=== PATIENT | female | born 1945 | race African-American/Black ===

== ENCOUNTER 2017-11-23 17:59 | Inpatient (IN) | payer MEDICARE, OTHER ==
[~2017-11-23] VITALS: Ht 162.6 cm; Wt 72.2 kg
[2017-11-23] MEDS ORDERED: SODIUM CHLORIDE 0.9% 1,000 ML IV ONE ×2 (18:55)
[2017-11-23] MEDS ORDERED: ONDANSETRON HCL 4 MG/2 ML VIAL IV ONE (19:00)
[2017-11-23] MEDS ORDERED: MORPHINE SULFATE 4 MG/ML SYR/VIAL IV ONE (19:00)
[2017-11-23] MEDS ORDERED: cefTRIAXone 1GM/10ml IVPUSH 10 ML IV ONE (20:00)
[2017-11-23] MEDS ORDERED: ACETAMINOPHEN 325 MG TAB PO ONE (22:00)
[2017-11-23 22:02] LABS: Basophils # (auto) 0.1 uL; Basophils % (auto) 0.6 % (0.0-2.0); Eosinophils # (auto) 0.1 uL; Eosinophils % (auto) 0.7 % (0.0-7.0); Hematocrit 29.3 % (36.0-46.0); Hemoglobin 9.3 g/dL (12.2-16.2); Lymphocytes # (auto) 1.5 uL; Lymphocytes % (auto) 6.7 % (10.0-50.0); Mean Corpuscular Hemoglobin 29.1 pg (28.0-32.0); Mean Corpuscular Hgb Conc. 31.7 g/dL (32.0-36.0); Mean Corpuscular Volume 91.7 fL (80.0-100.0); Monocytes % (auto) 9.2 % (0.0-12.0); Neutrophils # (auto) 18.2 uL; Neutrophils % (auto) 82.8 % (37.0-80.0); Nucleated Red Blood Cells % 0.1 %; Platelet Count (auto) 302 10^3/uL (140-450); Red Cell Distribution Width 19.5 % (11.8-14.3); White Blood Cell 21.9 10^3/uL (4.4-10.8)
[2017-11-23 22:25] LABS: Amylase 12 U/L (25-115); Lipase 39 U/L (73-393)
[2017-11-23 22:29] LABS: Alanine Aminotransferase 17 U/L (13-56); Alkaline Phosphatase 204 U/L (45-117); Anion Gap 11 (5-15); Aspartate Aminotransferase 70 U/L (15-37); BUN/Creatinine Ratio 29.4; Bilirubin, Total 0.5 mg/dL (0.2-1.0); Blood Urea Nitrogen 10 mg/dL (7-18); Calcium 8.5 mg/dL (8.5-10.1); Carbon Dioxide 27 mmol/L (21-32); Chloride 98 mmol/L (98-107); GFR African American 242 mL/min; GFR Non-African American 200 mL/min; Glucose 91 mg/dL (74-106); Magnesium 2.5 mg/dL (1.6-2.6); Potassium 4.1 mmol/L (3.5-5.1); Sodium 136 mmol/L (136-145); Total Protein 7.4 g/dL (6.4-8.2)
[2017-11-24] MEDS ORDERED: VANCOMYCIN PER PHARMACY 0 MG IV SCH (00:15)
[2017-11-24] MEDS ORDERED: ACETAMINOPHEN 500 MG TAB PO PRN (00:15)
[2017-11-24] MEDS: SODIUM CHLORIDE 0.9% 1,000 ML IV SCH ×2 (00:39→14:46)
[2017-11-24] MEDS ORDERED: VANCOMYCIN 1GM/250ML 250 ML IV ONE (01:00)
[2017-11-24 02:45] VITALS: BP 158/65
[2017-11-24 02:57] LABS: Urine Bacteria NONE SEEN /hpf (None Seen); Urine Blood Negative /uL (Negative); Urine Mucus MANY (None Seen); Urine Specific Gravity 1.028 (1.001-1.035); Urine WBC 7 /hpf (0 - 5)
[2017-11-24 05:00] VITALS: BP 137/79
[2017-11-24 08:55] VITALS: BP 152/78
[2017-11-24 11:54] VITALS: BP 135/71
[2017-11-24] MEDS: HYDROcodone-ACET 5/325MG TAB PO PRN ×2 (12:33→19:43)
[2017-11-24] MEDS: ONDANSETRON HCL 4 MG/2 ML VIAL IV PRN ×4 (12:47→18:01)
[2017-11-24 12:56] LABS: Hemoglobin 8.9 g/dL (12.2-16.2)
[2017-11-24 12:57] LABS: Hematocrit 28.6 % (36.0-46.0); Mean Corpuscular Hemoglobin 28.5 pg (28.0-32.0); Mean Corpuscular Hgb Conc. 31.1 g/dL (32.0-36.0); Mean Corpuscular Volume 91.5 fL (80.0-100.0); Platelet Count (auto) 278 10^3/uL (140-450); Red Blood Cells 3.12 10^6/uL (4.0-5.20); Red Cell Distribution Width 19.5 % (11.8-14.3); White Blood Cell 23.8 10^3/uL (4.4-10.8)
[2017-11-24 13:10] LABS: Basophils % (manual) 0 (0.0-2.0); Blast Cells 0; Eosinophils % (manual) 0 (0-7); Metamyelocytes % 0; Myelocytes % 0; Promyelocytes % 0; Reactive Lymphocytes 0
[2017-11-24 13:22] LABS: Calcium 8.2 mg/dL (8.5-10.1); Potassium 3.8 mmol/L (3.5-5.1)
[2017-11-24] MEDS: LEVOFLOXACIN 500MG 100 ML IV SCH (13:43)
[2017-11-24 14:02] LABS: Band Neutrophils % (manual) 1; Lymphocytes % (manual) 4 (10.0-50.0); Monocytes % (manual) 4 (0-12)
[2017-11-24 16:25] VITALS: BP 136/84
[2017-11-24] MEDS ORDERED: PRO10T PO (17:03)
[2017-11-24] MEDS ORDERED: LORA1TAB12 PO (17:03)
[2017-11-24] MEDS ORDERED: HYDR-4683 PO (17:03)
[2017-11-24] MEDS ORDERED: AMLO5TAB2 PO (17:03)
[2017-11-24 23:23] VITALS: BP 149/85
[2017-11-25] MEDS ORDERED: VANCOMYCIN 750 MG in D5W 5% 250 ML IV SCH (01:00)
[2017-11-25] MEDS: SODIUM CHLORIDE 0.9% 1,000 ML IV SCH ×2 (02:55→17:13)
[2017-11-25 05:47] VITALS: BP 140/80
[2017-11-25] MEDS: ONDANSETRON HCL 4 MG/2 ML VIAL IV PRN ×2 (07:52→19:20)
[2017-11-25 08:11] VITALS: BP 153/91
[2017-11-25] MEDS: LEVOFLOXACIN 500MG 100 ML IV SCH (09:42)
[2017-11-25] MEDS ORDERED: IOHEXOL 300 MG/ML 100ML BOTTLE IJ ONE (10:16)
[2017-11-25 10:51] LABS: Hematocrit 24.6 % (36.0-46.0); Hemoglobin 7.9 g/dL (12.2-16.2); Mean Corpuscular Hemoglobin 29.1 pg (28.0-32.0); Platelet Count (auto) 169 10^3/uL (140-450); Red Cell Distribution Width 19.6 % (11.8-14.3); White Blood Cell 22.2 10^3/uL (4.4-10.8)
[2017-11-25 10:53] LABS: Band Neutrophils % (manual) 0; Basophils % (manual) 0 (0.0-2.0); Blast Cells 0; Eosinophils % (manual) 0 (0-7); Metamyelocytes % 0; Myelocytes % 0; Promyelocytes % 0; Reactive Lymphocytes 0
[2017-11-25] MEDS: HYDROcodone-ACET 5/325MG TAB PO PRN (11:40)
[2017-11-25 11:42] LABS: Lymphocytes % (manual) 6 (10.0-50.0); Monocytes % (manual) 3 (0-12)
[2017-11-25] MEDS: HYDROmorphone HCL 2 MG/ML VL IV PRN ×2 (12:00→18:25)
[2017-11-25 12:12] VITALS: BP 160/99
[2017-11-25 16:55] VITALS: BP 144/78
[2017-11-25 22:00] VITALS: BP 159/97
[2017-11-26] MEDS: VANCOMYCIN 1GM/250ML 250 ML IV SCH (01:05)
[2017-11-26] MEDS: HYDROmorphone HCL 2 MG/ML VL IV PRN ×5 (01:36→20:49)
[2017-11-26 05:25] VITALS: BP 146/77
[2017-11-26] MEDS: SODIUM CHLORIDE 0.9% 1,000 ML IV SCH ×2 (06:32→20:56)
[2017-11-26 09:00] VITALS: BP 158/96
[2017-11-26] MEDS: LACTULOSE 20Gm/30ML SOLN PO PRN (09:34)
[2017-11-26] MEDS: LEVOFLOXACIN 500MG 100 ML IV SCH (09:34)
[2017-11-26] MEDS: BOOST 8 ounces PO SCH ×3 (09:34→18:00)
[2017-11-26 13:00] VITALS: BP 154/86
[2017-11-26] MEDS: ONDANSETRON HCL 4 MG/2 ML VIAL IV PRN (13:57)
[2017-11-26 16:40] VITALS: BP 158/95
[2017-11-26 22:00] VITALS: BP 136/80
[2017-11-27] MEDS: VANCOMYCIN 1GM/250ML 250 ML IV SCH ×2 (01:00→09:50)
[2017-11-27] MEDS: HYDROmorphone HCL 2 MG/ML VL IV PRN ×3 (04:41→18:39)
[2017-11-27 05:27] VITALS: BP 152/82
[2017-11-27] MEDS: ONDANSETRON HCL 4 MG/2 ML VIAL IV PRN ×3 (06:40→17:59)
[2017-11-27] MEDS: BOOST 8 ounces PO SCH ×3 (08:00→17:32)
[2017-11-27] MEDS: SODIUM CHLORIDE 0.9% 1,000 ML IV SCH ×2 (08:15→21:49)
[2017-11-27 09:00] VITALS: BP 167/98
[2017-11-27] MEDS: LEVOFLOXACIN 500MG 100 ML IV SCH (09:49)
[2017-11-27] MEDS: PRO-STAT 64 30ML PO SCH (09:50)
[2017-11-27 13:00] VITALS: BP 152/74
[2017-11-27 17:00] VITALS: BP 138/60
[2017-11-27] MEDS: LACTULOSE 20Gm/30ML SOLN PO PRN (21:49)
[2017-11-27] MEDS ORDERED: hydrALAZINE HCL 20 MG/ML VL ONE (21:58)
[2017-11-27 22:00] VITALS: BP 126/64
[2017-11-27] MEDS: hydrALAZINE HCL 20 MG/ML VL IV PRN (22:00)
[2017-11-28] MEDS: HYDROmorphone HCL 2 MG/ML VL IV PRN ×7 (01:02→23:08)
[2017-11-28] MEDS: hydrALAZINE HCL 20 MG/ML VL IV PRN (04:30)
[2017-11-28 05:00] VITALS: BP 169/110
[2017-11-28 06:05] LABS: Albumin 1.7 g/dL (3.4-5.0); Calcium 8.3 mg/dL (8.5-10.1); Total Protein 6.8 g/dL (6.4-8.2)
[2017-11-28 06:06] LABS: Potassium 2.9 mmol/L (3.5-5.1)
[2017-11-28] MEDS ORDERED: POTASSIUM CHL 20 Meq TABLET PO ONE (06:15)
[2017-11-28] MEDS: ONDANSETRON HCL 4 MG/2 ML VIAL IV PRN ×2 (06:38→16:37)
[2017-11-28 08:00] VITALS: BP 154/87
[2017-11-28] MEDS: HYDROcodone-ACET 5/325MG TAB PO PRN ×2 (08:33→12:10)
[2017-11-28] MEDS: BOOST 8 ounces PO SCH ×3 (08:33→17:27)
[2017-11-28] MEDS: LEVOFLOXACIN 500MG 100 ML IV SCH (09:08)
[2017-11-28] MEDS: VANCOMYCIN 1GM/250ML 250 ML IV SCH (12:07)
[2017-11-28] MEDS: PRO-STAT 64 30ML PO SCH (12:07)
[2017-11-28] MEDS: SODIUM CHLORIDE 0.9% 1,000 ML IV SCH (12:07)
[2017-11-28 13:00] VITALS: BP 148/91
[2017-11-28 16:58] VITALS: BP 154/99
[2017-11-28 21:56] VITALS: BP 153/90
[2017-11-28] MEDS ORDERED: hydrALAZINE HCL 20 MG/ML VL IV SCH ×2 (22:00→22:01)
[2017-11-28] MEDS ORDERED: TEMAZEPAM 15 MG CAP PO ONE (22:45)
[2017-11-29] MEDS: SODIUM CHLORIDE 0.9% 1,000 ML IV SCH ×2 (00:15→14:54)
[2017-11-29] MEDS: ONDANSETRON HCL 4 MG/2 ML VIAL IV PRN ×4 (04:07→23:24)
[2017-11-29] MEDS: HYDROmorphone HCL 2 MG/ML VL IV PRN ×4 (04:25→23:24)
[2017-11-29] MEDS: LACTULOSE 20Gm/30ML SOLN PO PRN ×2 (05:07→17:07)
[2017-11-29 05:52] VITALS: BP 159/102
[2017-11-29 07:15] LABS: Hematocrit 29.5 % (36.0-46.0); Hemoglobin 9.3 g/dL (12.2-16.2); Mean Corpuscular Hemoglobin 28.5 pg (28.0-32.0); Mean Corpuscular Hgb Conc. 31.5 g/dL (32.0-36.0); Mean Corpuscular Volume 90.5 fL (80.0-100.0); Platelet Count (auto) 146 10^3/uL (140-450); Red Blood Cells 3.26 10^6/uL (4.0-5.20); White Blood Cell 29.4 10^3/uL (4.4-10.8)
[2017-11-29 07:36] LABS: Albumin 1.6 g/dL (3.4-5.0); BUN/Creatinine Ratio 24.3; Calcium 8.1 mg/dL (8.5-10.1); Potassium 3.3 mmol/L (3.5-5.1); Red Cell Distribution Width 20.5 % (11.8-14.3); Total Protein 6.6 g/dL (6.4-8.2)
[2017-11-29 07:37] LABS: Basophils % (manual) 0 (0.0-2.0); Blast Cells 0; Metamyelocytes % 0; Myelocytes % 0; Promyelocytes % 0; Reactive Lymphocytes 0
[2017-11-29] MEDS: LEVOFLOXACIN 500MG 100 ML IV SCH (08:29)
[2017-11-29 09:00] VITALS: BP 179/89
[2017-11-29 09:25] LABS: Band Neutrophils % (manual) 2
[2017-11-29 09:26] LABS: Eosinophils % (manual) 1 (0-7); Lymphocytes % (manual) 5 (10.0-50.0); Monocytes % (manual) 3 (0-12)
[2017-11-29] MEDS: PRO-STAT 64 30ML PO SCH (11:25)
[2017-11-29] MEDS: BOOST 8 ounces PO SCH ×3 (11:25→19:36)
[2017-11-29] MEDS: hydrALAZINE HCL 20 MG/ML VL IV PRN (11:26)
[2017-11-29 13:00] VITALS: BP 122/113
[2017-11-29] MEDS: VANCOMYCIN 1GM/250ML 250 ML IV SCH (14:54)
[2017-11-29 18:00] VITALS: BP 150/90
[2017-11-29 22:18] VITALS: BP 145/85
[2017-11-30] MEDS: HYDROmorphone HCL 2 MG/ML VL IV PRN ×4 (02:34→23:04)
[2017-11-30 05:32] VITALS: BP 159/91
[2017-11-30 08:16] LABS: Albumin 1.6 g/dL (3.4-5.0); BUN/Creatinine Ratio 22.5; Bilirubin, Total 0.9 mg/dL (0.2-1.0); Calcium 8.2 mg/dL (8.5-10.1); Potassium 3.2 mmol/L (3.5-5.1); Total Protein 6.5 g/dL (6.4-8.2)
[2017-11-30] MEDS: VANCOMYCIN 1GM/250ML 250 ML IV SCH (08:22)
[2017-11-30] MEDS: ONDANSETRON HCL 4 MG/2 ML VIAL IV PRN ×2 (08:23→19:26)
[2017-11-30] MEDS: BOOST 8 ounces PO SCH ×3 (08:23→19:27)
[2017-11-30 09:00] VITALS: BP 167/89
[2017-11-30] MEDS ORDERED: BISACODYL 10 MG RECT SUPP PR PRN (09:45)
[2017-11-30] MEDS: PRO-STAT 64 30ML PO SCH (11:43)
[2017-11-30 13:00] VITALS: BP 159/82
[2017-11-30] MEDS: LEVOFLOXACIN 500MG 100 ML IV SCH (13:24)
[2017-11-30 17:00] VITALS: BP 148/77
[2017-11-30] MEDS: HYDROcodone-ACET 5/325MG TAB PO PRN (21:47)
[2017-11-30 21:55] VITALS: BP 168/78
[2017-11-30] MEDS: SODIUM CHLORIDE 0.9% 1,000 ML IV SCH (23:08)
[2017-12-01] MEDS: HYDROmorphone HCL 2 MG/ML VL IV PRN ×3 (04:25→18:20)
[2017-12-01 05:00] VITALS: BP 165/92
[2017-12-01 06:13] LABS: Albumin 1.6 g/dL (3.4-5.0); BUN/Creatinine Ratio 27.9; Calcium 8.1 mg/dL (8.5-10.1); Potassium 3.3 mmol/L (3.5-5.1)
[2017-12-01 06:16] LABS: Bilirubin, Total 0.8 mg/dL (0.2-1.0); Total Protein 6.1 g/dL (6.4-8.2)
[2017-12-01 09:00] VITALS: BP 170/89
[2017-12-01] MEDS: ONDANSETRON HCL 4 MG/2 ML VIAL IV PRN ×2 (09:50→14:25)
[2017-12-01] MEDS: LEVOFLOXACIN 500MG 100 ML IV SCH (09:51)
[2017-12-01] MEDS: BOOST 8 ounces PO SCH ×3 (09:56→18:20)
[2017-12-01] MEDS: PRO-STAT 64 30ML PO SCH (11:49)
[2017-12-01 12:15] LABS: Hemoglobin 9.1 g/dL (12.2-16.2)
[2017-12-01 12:17] LABS: Hematocrit 29.3 % (36.0-46.0); Mean Corpuscular Hgb Conc. 31.1 g/dL (32.0-36.0); Platelet Count (auto) 134 10^3/uL (140-450); Red Blood Cells 3.25 10^6/uL (4.0-5.20)
[2017-12-01 12:19] LABS: Red Cell Distribution Width 21.3 % (11.8-14.3)
[2017-12-01 12:21] LABS: White Blood Cell 34.4 10^3/uL (4.4-10.8)
[2017-12-01 12:22] LABS: Band Neutrophils % (manual) 0; Basophils % (manual) 0 (0.0-2.0); Blast Cells 0; Eosinophils % (manual) 0 (0-7); Metamyelocytes % 0; Myelocytes % 0; Promyelocytes % 0; Reactive Lymphocytes 0
[2017-12-01 13:00] VITALS: BP 170/90
[2017-12-01] MEDS: VANCOMYCIN 1GM/250ML 250 ML IV SCH (13:17)
[2017-12-01 13:53] LABS: Lymphocytes % (manual) 4 (10.0-50.0); Monocytes % (manual) 4 (0-12)
[2017-12-01] MEDS: MORPHINE SULF 30 mg ER tab PO SCH ×2 (14:24→22:12)
[2017-12-01] MEDS: SOD CHL 0.9%/ KCL 20MEQ 1,000 ML IV SCH (14:25)
[2017-12-01 16:47] VITALS: BP 170/86
[2017-12-01 22:00] VITALS: BP 148/81
[2017-12-02] MEDS: SOD CHL 0.9%/ KCL 20MEQ 1,000 ML IV SCH ×2 (03:17→16:54)
[2017-12-02 05:00] VITALS: BP 160/86
[2017-12-02] MEDS: VANCOMYCIN 1GM/250ML 250 ML IV SCH ×2 (05:45→20:49)
[2017-12-02 06:35] LABS: Hematocrit 28.9 % (36.0-46.0); Hemoglobin 9.2 g/dL (12.2-16.2); Mean Corpuscular Hemoglobin 28.5 pg (28.0-32.0); Mean Corpuscular Hgb Conc. 31.7 g/dL (32.0-36.0); Platelet Count (auto) 129 10^3/uL (140-450); Red Blood Cells 3.21 10^6/uL (4.0-5.20)
[2017-12-02 06:50] LABS: Red Cell Distribution Width 21.7 % (11.8-14.3)
[2017-12-02 06:51] LABS: Basophils % (manual) 0 (0.0-2.0); Blast Cells 0; Metamyelocytes % 0; Myelocytes % 0; Promyelocytes % 0; Reactive Lymphocytes 0; White Blood Cell 33.4 10^3/uL (4.4-10.8)
[2017-12-02 07:00] LABS: BUN/Creatinine Ratio 25.9; Potassium 3.8 mmol/L (3.5-5.1)
[2017-12-02 07:01] LABS: Calcium 8.2 mg/dL (8.5-10.1)
[2017-12-02 09:00] VITALS: BP 153/85
[2017-12-02] MEDS: PRO-STAT 64 30ML PO SCH (10:00)
[2017-12-02] MEDS: MORPHINE SULF 30 mg ER tab PO SCH ×2 (10:43→21:46)
[2017-12-02] MEDS: LEVOFLOXACIN 500MG 100 ML IV SCH (10:43)
[2017-12-02] MEDS: BOOST 8 ounces PO SCH ×3 (10:47→18:00)
[2017-12-02 13:57] VITALS: BP 149/87
[2017-12-02 14:45] LABS: Band Neutrophils % (manual) 1; Eosinophils % (manual) 1 (0-7); Lymphocytes % (manual) 3 (10.0-50.0); Monocytes % (manual) 5 (0-12)
[2017-12-02 17:00] VITALS: BP 142/79
[2017-12-02 21:50] VITALS: BP_SYST 126; BP_SYST 135; BP_DIAS 58; BP_DIAS 82
[2017-12-03 05:07] VITALS: BP 144/91
[2017-12-03] MEDS: SOD CHL 0.9%/ KCL 20MEQ 1,000 ML IV SCH ×2 (05:30→18:06)
[2017-12-03 07:30] VITALS: BP 179/89
[2017-12-03] MEDS: BOOST 8 ounces PO SCH ×3 (08:00→17:56)
[2017-12-03] MEDS: PRO-STAT 64 30ML PO SCH (09:09)
[2017-12-03] MEDS: MORPHINE SULF 30 mg ER tab PO SCH ×2 (09:13→22:16)
[2017-12-03] MEDS: LEVOFLOXACIN 500MG 100 ML IV SCH (09:18)
[2017-12-03] MEDS: VANCOMYCIN 1GM/250ML 250 ML IV SCH (11:26)
[2017-12-03 11:54] LABS: Hematocrit 29.5 % (36.0-46.0); Hemoglobin 9.2 g/dL (12.2-16.2); Mean Corpuscular Hemoglobin 28.7 pg (28.0-32.0); Mean Corpuscular Hgb Conc. 31.3 g/dL (32.0-36.0); Mean Corpuscular Volume 91.6 fL (80.0-100.0); Platelet Count (auto) 130 10^3/uL (140-450); Red Blood Cells 3.22 10^6/uL (4.0-5.20)
[2017-12-03 11:59] LABS: Band Neutrophils % (manual) 0; Basophils % (manual) 0 (0.0-2.0); Blast Cells 0; Eosinophils % (manual) 0 (0-7); Metamyelocytes % 0; Myelocytes % 0; Promyelocytes % 0; Reactive Lymphocytes 0; White Blood Cell 34.6 10^3/uL (4.4-10.8)
[2017-12-03 12:48] LABS: Lymphocytes % (manual) 4 (10.0-50.0); Monocytes % (manual) 5 (0-12)
[2017-12-03 13:00] VITALS: BP 147/86
[2017-12-03] MEDS: HYDROmorphone HCL 2 MG/ML VL IV PRN ×2 (16:27→20:31)
[2017-12-03 17:00] VITALS: BP 147/84
[2017-12-03 21:45] VITALS: BP 136/76
[2017-12-04] MEDS: HYDROmorphone HCL 2 MG/ML VL IV PRN ×2 (04:05→09:16)
[2017-12-04 05:23] VITALS: BP 145/80
[2017-12-04] MEDS: BOOST 8 ounces PO SCH ×3 (08:00→18:00)
[2017-12-04] MEDS: SOD CHL 0.9%/ KCL 20MEQ 1,000 ML IV SCH ×2 (08:10→23:28)
[2017-12-04 09:00] VITALS: BP 142/84
[2017-12-04] MEDS: ONDANSETRON HCL 4 MG/2 ML VIAL IV PRN (09:25)
[2017-12-04] MEDS: PRO-STAT 64 30ML PO SCH (10:00)
[2017-12-04] MEDS: LEVOFLOXACIN 500MG 100 ML IV SCH (10:22)
[2017-12-04] MEDS: MORPHINE SULF 30 mg ER tab PO SCH (10:22)
[2017-12-04 13:00] VITALS: BP 140/81
[2017-12-04] MEDS ORDERED: VANCOMYCIN 1GM/250ML 250 ML IV SCH (13:00)
[2017-12-04 16:47] VITALS: BP 141/82
[2017-12-04] MEDS ORDERED: DILTIAZEM HCL 25 MG/5 ML VIAL IV ONE (18:45)
[2017-12-04 22:00] VITALS: BP 128/80
[2017-12-05 05:00] VITALS: BP 148/89
[2017-12-05] MEDS: BOOST 8 ounces PO SCH ×3 (08:00→18:00)
[2017-12-05 09:00] VITALS: BP 163/92
[2017-12-05] MEDS: LEVOFLOXACIN 500MG 100 ML IV SCH (09:27)
[2017-12-05] MEDS: HYDROcodone-ACET 5/325MG TAB PO PRN ×2 (09:27→17:00)
[2017-12-05] MEDS: PRO-STAT 64 30ML PO SCH (10:00)
[2017-12-05 13:00] VITALS: BP 162/98
[2017-12-05] MEDS: hydrALAZINE HCL 20 MG/ML VL IV PRN (16:54)
[2017-12-05 17:00] VITALS: BP 160/113
[2017-12-05] MEDS ORDERED: DILTIAZEM HCL 25 MG/5 ML VIAL IV ONE (17:30)
[2017-12-05] MEDS ORDERED: VANCOMYCIN 1GM/250ML 250 ML IV SCH (18:00)
[2017-12-05] MEDS ORDERED: VANCOMYCIN PER PHARMACY 0 MG IV SCH (18:00)
[2017-12-05] MEDS: SOD CHL 0.9%/ KCL 20MEQ 1,000 ML IV SCH (18:30)
[2017-12-05] MEDS: HYDROmorphone HCL 2 MG/ML VL IV PRN ×2 (18:45→22:55)
[2017-12-05] MEDS: VANCOMYCIN 1GM/250ML 250 ML IV SCH (21:42)
[2017-12-05 23:00] VITALS: BP 154/94
[2017-12-05] MEDS: AZTREONAM 1GM INJ 1 GM in D5W 5% 50 ML IV SCH (23:04)
[2017-12-06] MEDS: SOD CHL 0.9%/ KCL 20MEQ 1,000 ML IV SCH ×3 (03:02→20:00)
[2017-12-06 05:00] VITALS: BP 155/104
[2017-12-06 05:07] LABS: Mean Corpuscular Volume 89.4 fL (80.0-100.0)
[2017-12-06 05:09] LABS: Hematocrit 31.5 % (36.0-46.0); Mean Corpuscular Hemoglobin 28.5 pg (28.0-32.0); Mean Corpuscular Hgb Conc. 31.8 g/dL (32.0-36.0); Platelet Count (auto) 21 10^3/uL (140-450); Red Blood Cells 3.52 10^6/uL (4.0-5.20)
[2017-12-06 05:15] LABS: Red Cell Distribution Width 23.9 % (11.8-14.3); White Blood Cell 37.7 10^3/uL (4.4-10.8)
[2017-12-06 05:17] LABS: Band Neutrophils % (manual) 0; Basophils % (manual) 0 (0.0-2.0); Blast Cells 0; Eosinophils % (manual) 0 (0-7); Metamyelocytes % 0; Myelocytes % 0; Promyelocytes % 0; Reactive Lymphocytes 0
[2017-12-06 05:29] LABS: Calcium 8.2 mg/dL (8.5-10.1)
[2017-12-06] MEDS: AZTREONAM 1GM INJ 1 GM in D5W 5% 50 ML IV SCH ×3 (05:29→22:05)
[2017-12-06 05:31] LABS: BUN/Creatinine Ratio 27.2
[2017-12-06 06:26] LABS: Lymphocytes % (manual) 3 (10.0-50.0); Monocytes % (manual) 3 (0-12)
[2017-12-06 07:44] LABS: Albumin 1.5 g/dL (3.4-5.0); Bilirubin, Total 2.1 mg/dL (0.2-1.0)
[2017-12-06 08:00] VITALS: BP 139/84
[2017-12-06] MEDS: BOOST 8 ounces PO SCH ×3 (08:00→18:00)
[2017-12-06 09:00] VITALS: BP 139/84
[2017-12-06] MEDS: HYDROmorphone HCL 2 MG/ML VL IV PRN ×3 (09:52→20:12)
[2017-12-06] MEDS: PRO-STAT 64 30ML PO SCH (10:00)
[2017-12-06] MEDS: LEVOFLOXACIN 500MG 100 ML IV SCH (10:11)
[2017-12-06 13:00] VITALS: BP 137/90
[2017-12-06 17:00] VITALS: BP 154/108
[2017-12-06] MEDS: VANCOMYCIN 1GM/250ML 250 ML IV SCH (20:54)
[2017-12-06 22:00] VITALS: BP 117/82
[2017-12-07] MEDS: HYDROmorphone HCL 2 MG/ML VL IV PRN ×2 (00:11→10:23)
[2017-12-07 04:40] VITALS: BP 134/88
[2017-12-07] MEDS: SOD CHL 0.9%/ KCL 20MEQ 1,000 ML IV SCH ×2 (05:06→12:47)
[2017-12-07] MEDS: AZTREONAM 1GM INJ 1 GM in D5W 5% 50 ML IV SCH ×2 (05:54→13:52)
[2017-12-07 08:00] VITALS: BP 133/79
[2017-12-07] MEDS: BOOST 8 ounces PO SCH ×3 (08:59→18:00)
[2017-12-07 09:00] VITALS: BP 133/79
[2017-12-07] MEDS: LEVOFLOXACIN 500MG 100 ML IV SCH (09:29)
[2017-12-07] MEDS: PRO-STAT 64 30ML PO SCH (10:21)
[2017-12-07 10:43] LABS: BUN/Creatinine Ratio 22.1; Calcium 8.1 mg/dL (8.5-10.1)
[2017-12-07 10:45] LABS: Hematocrit 28.2 % (36.0-46.0)
[2017-12-07 10:49] LABS: Hemoglobin 8.9 g/dL (12.2-16.2); Mean Corpuscular Hemoglobin 27.5 pg (28.0-32.0); Mean Corpuscular Hgb Conc. 31.7 g/dL (32.0-36.0); Red Blood Cells 3.24 10^6/uL (4.0-5.20)
[2017-12-07 10:54] LABS: Platelet Count (auto) 12 10^3/uL (140-450); White Blood Cell 43.8 10^3/uL (4.4-10.8)
[2017-12-07 10:55] LABS: Band Neutrophils % (manual) 0; Basophils % (manual) 0 (0.0-2.0); Blast Cells 0; Eosinophils % (manual) 0 (0-7); Metamyelocytes % 0; Myelocytes % 0; Potassium 5.6 mmol/L (3.5-5.1); Promyelocytes % 0; Reactive Lymphocytes 0
[2017-12-07 11:24] LABS: Lymphocytes % (manual) 6 (10.0-50.0); Monocytes % (manual) 2 (0-12)
[2017-12-07 12:27] VITALS: BP 106/77
[2017-12-07 13:00] VITALS: BP 106/77
[2017-12-07] MEDS: ONDANSETRON HCL 4 MG/2 ML VIAL IV PRN (15:47)
[2017-12-07 17:00] VITALS: BP 118/80
== END 2017-12-07 18:10 | disposition hospice, home (50) | DRG 871 ==
LOC: ER 18:04 → TELE 18:05 → TELE-WESTW 11-24 02:30
PROVIDERS: ADMIT Nurse Practitioner Family; ATTEND Internal Medicine
PROC: 02H633Z Insertion of Infusion Device into Right Atrium, Percutaneous Approach (ICD-10-PCS; principal; 2017-11-23)
DX: A41.9 Sepsis, unspecified organism (principal); E43 Unspecified severe protein-calorie malnutrition; C25.9 Malignant neoplasm of pancreas, unspecified; C78.7 Secondary malignant neoplasm of liver and intrahepatic bile duct; C78.6 Secondary malignant neoplasm of retroperitoneum and peritoneum; F32.9 Major depressive disorder, single episode, unspecified; K59.00 Constipation, unspecified; N39.0 Urinary tract infection, site not specified; F41.9 Anxiety disorder, unspecified; Z80.3 Family history of malignant neoplasm of breast; Z68.27 Body mass index [BMI] 27.0-27.9, adult; Z92.21 Personal history of antineoplastic chemotherapy; Z88.0 Allergy status to penicillin; Z79.899 Other long term (current) drug therapy
CPT/HCPCS: 36415; 70450; 70470; 71045; 74176; 80048; 80053; 80076; 80202; 81001; 82150; 82378; 82565; 83605; 83690; 83735; 84484; 84520; 85007; 85025; 85027; 87040; 87077; 87086; 87186; 93005; 93306; 95819; 96361; 96365; 96375; 97110; 97530; J1956; J2405; J7060